=== PATIENT | female | born 2000 | race Caucasian/White ===

== ENCOUNTER 2023-02-08 07:55 | Inpatient (IN) ==
[2023-02-08] MEDS ORDERED: OXYTOCIN 30 UNITS/500 ML BAG IV PRN ×2 (08:21)
[2023-02-08] MEDS ORDERED: LIDOCAINE 1% LOCAL 20 ML VIAL INFIL PRN (08:21)
--- NOTE | 2023-02-08 08:21 | History & Physical Report ---
Date of Service February 08, 2023 Assessment & Plan (1) Hypothyroidism: (2) Encounter for induction of labor: Plan Will admit patient to L&D for induction of labor. Patient comfortable. VSS. Fetus category 1 Cervix favorable, plan for Dickey balloon Pit as needed Epidural prn Patient in agreement. Admission and Anticipated Discharge Date Admission Date: February 08, 2023 History of Present Illness Chief Complaint: INDUCTION Primary Care Provider: Flower Alcala DO Contreras is a 22 y/o female with PMHx of Hypothyroidism who is currently at IUP 40 3/7 WGA with an RONAL 02/05/23 as determined by certain LMP who is here for IOL due to post dates. (+) movement (-) contractions (-) fluid loss (-) bloody show External FHT and external uterine monitors used * Category 1 tracing * Moderate FHT variability. Had regular appointments since 1st trimester. OB Labs: Blood Type A Negative 07/07/22 Antibody Screen NEGATIVE 11/18/22 Hemoglobin 11.8 g/dl (12.0-16.0) L 11/18/22 Hematocrit 35.8 % (37.0-47.0) L 11/18/22 Mean Corpuscular Volume 84.6 fL (80.0-100.0) 09/12/22 Platelet Count 292 K/uL (130-400) 09/12/22 Rubella IgG Antibody Equivocal (Immune) L 07/07/22 Rapid Plasma Reagin Nonreactive (Nonreactive) 07/07/22 Hepatitis B Surface Antigen Neg (Neg) 10/23/20 Hepatitis B Surface Antigen. NON-REACTIVE (NON-REACTIVE) 07/07/22 Hepatitis C Antibody Neg (Neg) 10/23/20 Hepatitis C Antibody (EIA) NON-REACTIVE (NON-REACTIVE) 07/07/22 HIV (1&2) Ab and P24 Ag, 4th Gener Neg (Neg) 10/23/20 HIV (1&2) Ag and Ab Confirmation NON-REACTIVE (NON-REACTIVE) 07/07/22 Glucose 1 Hour 50 gm Load 71 mg/dl (70-130) 11/18/22 OB Optional Labs: Chlamydia trachomatis RNA Not Detected (NotDetected) 07/07/22 Neisseria gonorrhoeae RNA Not Detected (NotDetected) 07/07/22 Thyroid Stimulating Hormone (TSH) 1.07 mIU/L 12/06/22 Labs Reviewed: declines cf/sma/horizon/cfDNA Rhogam given on 11/18/22 Allergies Allergy/AdvReac Type Severity Reaction Status Date / Time paprika Allergy Hives, Verified 02/07/23 14:39 swelling Home Medications Medication Instructions Recorded Confirmed Type prenat.vits,ck,tnu-hryk-queek 1 tab PO DAILY 07/06/22 02/08/23 History levothyroxine 50 mcg tablet 50 mcg PO DAILY #90 tabs 09/12/22 02/08/23 Rx cholecalciferol (vitamin D3) 50 50 mcg PO DAILY 10/11/22 02/08/23 History mcg (2,000 unit) capsule Patient History Medical History (Updated 02/08/23 @ 08:19 by Neha Roach MD) Allergic rhinitis Surgical History No history of previous surgery Family History Grandfather (Maternal) Myocardial infarction Coronary heart disease Father Alcohol abuse Mother Anxiety Fibromyalgia IBS (irritable bowel syndrome) Brother No problems noted. Brother No problems noted. Grandmother (Maternal) Diabetes Denies family history of Ovarian cancer Prostate cancer Breast cancer Colorectal cancer Uterine cancer Social History Smoking Status: Never smoker Tobacco Type: E-cigarettes / Vaping Age Started Using Tobacco: 20; Second Hand Exposure: Yes; Do You Dip or Chew Tobacco: No; Hx Alcohol Use: No Hx Substance Use: No Preferred Language: Maltese Communication Ability: Effective Visual Impairment: Limited Hearing Ability: Normal Library Serials Assistant Required: No Beliefs That Will Affect Care: None marital status: single marital status details: boyfriend-Ignacio Ramirez (24) [phone] Current Living Situation: Significant Other Current Living Situation Comment: livves with partner, 3 rabbits, one cat, Partner litter changing current occupational status: employed 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 How many Children do You have: 0 Other Information That Helps Us Care for You: No Feels Safe at Home: Yes Safety Concerns: Feels Safe At This Time Childhood Exposure to Second-Hand Smoke: Yes (occasional ) Diet: regular caffeine: Yes during the past year weight has: remained stable Dental Care, Regularly: Yes Physical Activity Frequency: Daily Physical Activity Frequency Comment: work- walk Seatbelt Use: always Sunscreen Use: Yes Do you think of yourself as: straight/heterosexual Sexual Activity: has been sexually active within the last 12 months Assistive Devices: Glasses SYSTEMS SOFTWARE MANAGER History Menarche was at 10 y/o LMP: 05/01/22 * Regular: Every 28 days * Flow: normal Contraception use: No History of STDs: N Last Pap Smear: 10/26/20 (negative) Review of Systems no fever, no chills and no sweats Denies changes in vision. Denies shortness of breath or respiratory difficulty. no chest pain and no palpitations no dysuria no headache(s) Physical Exam Physical Exam: General: Alert, oriented x3. Afebrile. No acute distress. Eyes: Pupils equal and reactive to light bilaterally. Extraocular movement intact bilaterally. Cardiac: Regular rate and rhythm, no murmurs/rubs/gallops. Respiratory: Clear to auscultation bilaterally a/p, no wheezes/rales/rhonchi. No increased work of breathing. Symmetrical chest rise. No respiratory distress. Abdomen: Gravid; FHR baseline 130-135 bpm; Position: Cephalic Pelvic: 1.5 / 50 / -[address] Hernandez Lower Extremities: Bilateral swelling. No deep calf pain. Jennifer's negative bilaterally Results & Data Vital Signs (Past 12 Hours) Vital Signs Pulse BP 02/08/23 08:09 96 H 124/79 Supervising Physician Co-Signing Physician Notes Resident Physician Supervision Note: I interviewed and examined the patient. Discussed with Dr. Roach and agree with findings and plan as documented in the note. Any exceptions or clarifications are listed here: 22 yo G1 at 40 3/7 wga presents for post-dates IOL. +FM; denies regular ctx, LOF, VB. PNI: Hypothyroid, Rh neg, rub equiv. VSS, fetus cat 1. SVE 50/-2. 35 cc dickey placed, pt tolerated well. GBS neg. Epidural PRN. Will start pit w/ dickey Documented By: Carline Hernandez MD Resident Activity Tracking Resident Involvement: Resident Care Provided Care Provided: OB Delivery
[2023-02-08 08:50] LABS: Hematocrit (blood only) 37.2 % (37.0-47.0); Hemoglobin 12.9 g/dl (12.0-16.0); Mean Corpuscular Hemoglobin 30.4 pg (25.0-34.0); Mean Corpuscular Hgb Conc 34.7 g/dL (32.0-36.0); Mean Corpuscular Volume 87.7 fL (80.0-100.0); Mean Platelet Volume 11.7 fL (9.4-12.4); Platelet Count 166 K/uL (130-400); RDW Coefficient of Variation 14.8 % (11.5-14.5); RDW Standard Deviation 46.9 fL (36.4-46.3); Red Blood Count 4.24 M/uL (4.20-5.40); White Blood Count 8.32 K/ul (4.8-10.8)
[2023-02-08] MEDS: LACTATED RINGER'S 1,000 ML IV PRN ×4 (10:16→23:58)
[2023-02-08] MEDS ORDERED: fentaNYL citrate PF 100 MCG/2 ML VIAL ONE (11:48)
[2023-02-08] MEDS ORDERED: LIDOCAINE 2%/EPINEPHRINE 1:200,000 20 ML PF ONE (11:49)
[2023-02-08] MEDS ORDERED: fentANYL 2 MCG/ML BUPIVacaine 0.125%-NSS 100ML BAG ONE ×2 (11:49→20:33)
[2023-02-08] MEDS ORDERED: BUPIVACAINE 0.25% PF 30 ML VIAL ONE (11:49)
[2023-02-08] MEDS ORDERED: SODIUM CHLORIDE 0.9% PF INJ 10 ML VIAL ONE (11:49)
[2023-02-08] MEDS ORDERED: ePHEDrine sulfate 50 MG/ML AMP ONE (11:49)
--- NOTE | 2023-02-08 12:28 | Anesthesiology Consultation ---
Date of Service February 08, 2023 Assessment & Plan Chart Review Chart Review: Acceptable Risk for Labor Epidural Consults Requested none ASA ASA2 Proposed Anesthesia Anesthesia Type: Labor Epidural Risk / Benefits Reviewed With: PT / POA / Parent / Guardian, Accepts Plan and Informed Consent Obtained History Height/Weight Height: 5 ft 1 in Weight: 78.471 kg Allergies Allergy/AdvReac Type Severity Reaction Status Date / Time paprika Allergy Hives, Verified 02/07/23 14:39 swelling Medications Home Medications Medication Instructions Recorded Confirmed Last Taken prenat.vits,ck,mqm-moya-qbjhz 1 tab PO DAILY 07/06/22 02/08/23 02/07/23 levothyroxine 50 mcg tablet 50 mcg PO DAILY #90 tabs 09/12/22 02/08/23 02/07/23 cholecalciferol (vitamin D3) 50 50 mcg PO DAILY 10/11/22 02/08/23 02/07/23 mcg (2,000 unit) capsule Active Medications Generic Name Dose Route Start Last Admin Trade Name Freq PRN Reason Stop Dose Admin Oxytocin 30 units in 500 mls @ 6 mls/hr 02/08/23 08:21 02/08/23 11:20 Pitocin IV 02/10/23 08:20 0.36 units/hr .Q24H PRN 6 mls/hr Labor Induction/Augmentation Titration Protocol 0.36 UNITS/HR Lactated Ringer's 1,000 mls @ 125 mls/hr 02/08/23 08:21 02/08/23 11:21 Lr IV 02/10/23 08:20 999 mls/hr .Q8H PRN Infusion L&D Protocol Protocol Past Medical History Medical History Allergic rhinitis Exercise / Class Metabolic Activity II 4-5 Yardwork/Stairs/Walk up hill Past Family History Family History Grandfather (Maternal) Myocardial infarction Coronary heart disease Father Alcohol abuse Mother Anxiety Fibromyalgia IBS (irritable bowel syndrome) Brother No problems noted. Brother No problems noted. Grandmother (Maternal) Diabetes Denies family history of Ovarian cancer Prostate cancer Breast cancer Colorectal cancer Uterine cancer Past Surgical History Surgical History No history of previous surgery Past Anesthesia History No Hx of Anesthesia Complications and No Family Hx of Anesthesia Complications History of PONV No Hx of PONV and No Hx of Motion Sickness Social History Smoking Status: Former smoker Do You Dip or Chew Tobacco: No Hx Alcohol Use: No Hx Substance Use: No Physical Exam Vital Signs Last Vital Signs Temp 98.2 F 02/08/23 08:08 Pulse 81 02/08/23 12:24 Resp 18 02/08/23 08:08 BP 111/61 02/08/23 11:42 Pulse Ox 99 02/08/23 12:24 ENMT Mouth: no dentition abnormality Thyromental Distance: > or= 3.5 Finger Breadths Mallampati Class: II Neck normal visual inspection Respiratory normal respiratory effort Auscultation: lungs clear to auscultation bilaterally Cardiovascular Rate/Rhythm: regular rate and regular rhythm Testing Laboratory Results 02/08/23 08:34
[2023-02-08] MEDS ORDERED: diphenhydrAMINE 50 MG/ML VIAL IV PRN (12:52)
[2023-02-08] MEDS ORDERED: BUPIVACAINE 0.25% PF 30 ML VIAL EPI PRN (12:52)
[2023-02-08] MEDS ORDERED: LIDOCAINE 2%/EPINEPHRINE 1:200,000 20 ML PF EPI STA (12:52)
[2023-02-08] MEDS ORDERED: fentaNYL citrate PF 100 MCG/2 ML VIAL EPI STA (12:52)
[2023-02-08] MEDS ORDERED: fentaNYL citrate PF 100 MCG/2 ML VIAL EPI PRN (12:52)
[2023-02-08] MEDS ORDERED: SODIUM CHLORIDE 0.9% PF INJ 10 ML VIAL EPI PRN (12:52)
[2023-02-08] MEDS ORDERED: NALOXONE HCL 0.4 MG/1 ML VIAL/CARP IV PRN (12:52)
[2023-02-08] MEDS ORDERED: BUPIVACAINE 0.25% PF 30 ML VIAL EPI STA (12:52)
[2023-02-08] MEDS ORDERED: NALOXONE HCL 1 MG in SODIUM CHLORIDE 0.9% 1,000 ML IV PRN (12:52)
[2023-02-08] MEDS ORDERED: ROPIVACAINE 0.5% PF 5 MG/ML 20 ML VIAL EPI PRN (12:52)
[2023-02-08] MEDS ORDERED: SODIUM CHLORIDE 0.9% PF INJ 10 ML VIAL EPI STA (12:52)
[2023-02-08] MEDS ORDERED: ONDANSETRON INJ 2 MG/ML 2 ML VIAL IV PRN (12:52)
[2023-02-08] MEDS ORDERED: LIDOCAINE 2% MPF LOCAL 5 ML VIAL EPI PRN (12:52)
[2023-02-08] MEDS ORDERED: fentANYL 2 MCG/ML BUPIVacaine 0.125%-NSS 100ML BAG EPI PRN (12:52)
[2023-02-08] MEDS ORDERED: ePHEDrine sulfate 50 MG/ML AMP IV PRN (12:52)
[2023-02-08] MEDS ORDERED: NALBUPHINE HCL 5 MG in SYRINGE 0 ML IV PRN (12:52)
[2023-02-08] MEDS ORDERED: NURSING L&D Epidural Breakthrough Pain Update ONE (15:07)
--- NOTE | 2023-02-08 18:11 | Anesthesia Procedure Note ---
Date of Service February 08, 2023 Anesthesia Epidural Re-Dose Vital Signs Temp Pulse Resp BP Pulse Ox 98.1 F 76 18 132/71 99 02/08/23 17:00 02/08/23 18:04 02/08/23 17:30 02/08/23 18:04 02/08/23 18:04 Notes Pain Intensity: 7 Dilatation (cm): 5.0 Effacement (%): 80 Called by nursing to evaluate epidural as the patient is having increased pain. The epidural was re-dosed with the following medications after negative aspiration of the epidural catheter for CSF/HEME. 4mL of 0.25% Bupivacaine and 50 mcg of fentanyl After Epidural Re-Dose Mental Status: alert / awake / arousable Pain: improving with treatment Airway Patency, RR, SpO2: stable & adequate BP & HR: stable & adequate
--- NOTE | 2023-02-08 19:17 | Labor Progress Brief Note ---
Date of Service February 08, 2023 Subjective Called due to decel, resolved by my arrival Assessment & Plan (1) Encounter for induction of labor: Plan 22 yo G1 at 40 3/7 wga admitted for postdates IOL VSS Fetus cat 2 but reassuring now Labor - pit was turned off during decel, had one prior episode that was a large decel after srom and repositioning. Fetus has recovered well both times. Will let fetus recover for an hour and restart. Discussed if this continues to recur, will need to rediscuss method of delivery GBS neg epidural in place Admission and Anticipated Discharge Date Admission Date: February 08, 2023 Physical Exam Genitourinary: Manual OB Exam: + cervical dilation 5 cm, + cervical effacement 80% and + station -2 OB Exam Monitor Tracing: + scalp electrode used, + intra-uterine pressure catheter used and + category II (125/mod/+accel/+4min decel to 80s, recovered cat 1 w/ repositioning, pit dc) Results & Data Vital Signs (Past 12 Hours) Vital Signs Temp Pulse Resp BP Pulse Ox 02/08/23 19:09 78 99 02/08/23 19:04 98 02/08/23 19:04 71 02/08/23 19:04 71 112/63 02/08/23 19:00 18 02/08/23 19:00 18 02/08/23 18:59 73 98 02/08/23 18:54 72 98 02/08/23 18:49 98 02/08/23 18:49 75 02/08/23 18:49 75 113/64 02/08/23 18:44 74 98 02/08/23 18:39 79 100 02/08/23 18:36 70 115/66 02/08/23 18:34 71 100 02/08/23 18:31 71 95/63 L 02/08/23 18:30 18 02/08/23 18:30 18 02/08/23 18:29 94 H 97 02/08/23 18:24 72 97 02/08/23 18:20 71 114/64 02/08/23 18:19 72 96 02/08/23 18:14 79 98 02/08/23 18:09 78 99 02/08/23 18:04 76 132/71 99 02/08/23 17:59 74 100 02/08/23 17:54 76 99 02/08/23 17:50 74 128/73 02/08/23 17:49 74 99 02/08/23 17:44 72 99 02/08/23 17:39 77 97 02/08/23 17:35 72 130/72 02/08/23 17:34 77 100 02/08/23 17:30 18 02/08/23 17:30 18 02/08/23 17:29 72 99 02/08/23 17:24 77 99 02/08/23 17:20 76 113/57 L 02/08/23 17:19 73 99 02/08/23 17:14 72 98 02/08/23 17:09 72 98 02/08/23 17:05 71 114/58 L 02/08/23 17:04 73 99 02/08/23 17:00 18 02/08/23 17:00 98.1 F 18 02/08/23 16:59 74 99 02/08/23 16:54 72 100 02/08/23 16:49 98 02/08/23 16:49 73 02/08/23 16:49 72 133/71 02/08/23 16:44 72 98 02/08/23 16:39 73 98 02/08/23 16:34 86 130/67 100 02/08/23 16:30 18 02/08/23 16:30 18 02/08/23 16:29 72 100 02/08/23 16:24 91 H 99 02/08/23 16:19 70 99 02/08/23 16:14 71 96 02/08/23 16:09 72 98 02/08/23 16:05 85 134/60 02/08/23 16:04 80 98 02/08/23 16:00 18 02/08/23 16:00 98.1 F 18 02/08/23 15:59 76 97 02/08/23 15:54 74 97 02/08/23 15:49 97 02/08/23 15:49 71 02/08/23 15:49 73 108/53 L 02/08/23 15:44 71 98 02/08/23 15:39 69 97 02/08/23 15:35 71 105/53 L 02/08/23 15:34 71 98 02/08/23 15:29 69 97 02/08/23 15:24 69 97 02/08/23 15:20 68 108/50 L 02/08/23 15:19 68 97 02/08/23 15:14 70 97 02/08/23 15:09 70 96 02/08/23 15:04 71 107/50 L 98 02/08/23 15:00 18 02/08/23 15:00 18 02/08/23 14:59 71 97 02/08/23 14:54 74 97 02/08/23 14:49 72 111/57 L 98 02/08/23 14:44 84 97 02/08/23 14:39 74 97 02/08/23 14:34 71 99 02/08/23 14:30 18 02/08/23 14:30 18 02/08/23 14:29 74 98 02/08/23 14:24 75 97 02/08/23 14:20 76 117/55 L 02/08/23 14:19 77 98 02/08/23 14:14 74 97 02/08/23 14:09 75 97 02/08/23 14:05 72 113/56 L 02/08/23 14:04 73 97 02/08/23 14:00 18 02/08/23 14:00 98.2 F 18 02/08/23 13:59 73 97 02/08/23 13:54 73 98 02/08/23 13:49 75 121/61 98 02/08/23 13:44 74 98 02/08/23 13:39 71 98 02/08/23 13:34 74 116/56 L 98 02/08/23 13:29 74 98 02/08/23 13:24 73 97 02/08/23 13:19 71 98 02/08/23 13:18 72 118/57 L 02/08/23 13:14 73 113/59 L 97 02/08/23 13:09 74 98 02/08/23 13:08 73 114/58 L 02/08/23 13:04 73 18 97 02/08/23 13:03 72 115/59 L 02/08/23 13:02 18 02/08/23 13:02 18 02/08/23 13:00 18 02/08/23 13:00 18 02/08/23 12:59 74 98 02/08/23 12:58 18 02/08/23 12:58 18 02/08/23 12:56 18 120/57 L 02/08/23 12:54 18 02/08/23 12:54 18 02/08/23 12:54 97 02/08/23 12:54 77 02/08/23 12:54 78 114/55 L 02/08/23 12:52 73 18 116/59 L 02/08/23 12:49 77 103/57 L 98 02/08/23 12:44 86 98 02/08/23 12:39 87 98 02/08/23 12:34 99 H 99 02/08/23 12:29 85 99 02/08/23 12:27 18 02/08/23 12:27 18 02/08/23 12:24 81 99 02/08/23 12:19 73 98 02/08/23 12:14 77 99 02/08/23 12:09 71 99 02/08/23 12:04 73 100 02/08/23 11:42 69 111/61 02/08/23 10:20 80 118/71 02/08/23 08:09 96 H 124/79 02/08/23 08:08 98.2 F 18 Coding Level of Care Code None Diagnoses Encounter for induction of labor Z34.90
--- NOTE | 2023-02-08 22:33 | Labor Progress Brief Note ---
Date of Service February 08, 2023 Subjective comfortable w/ epidural Assessment & Plan (1) Encounter for induction of labor: Plan 22 yo G1 at 40 3/7 wga admitted for postdates IOL VSS Fetus cat 1 Labor - good progress noted, continue induction GBS neg epidural in place Admission and Anticipated Discharge Date Admission Date: February 08, 2023 Physical Exam Genitourinary: Manual OB Exam: + cervical dilation 9 cm, + cervical effacement 90% and + station + 1 OB Exam Monitor Tracing: + scalp electrode used, + intra-uterine pressure catheter used and + category I Results & Data Vital Signs (Past 12 Hours) Vital Signs Temp Pulse Resp BP Pulse Ox 02/08/23 22:29 76 98 02/08/23 22:24 83 98 02/08/23 22:19 80 115/64 96 02/08/23 22:14 80 97 02/08/23 22:09 83 98 02/08/23 22:04 77 97 02/08/23 22:03 84 117/68 02/08/23 21:59 96 H 98 02/08/23 21:54 86 98 02/08/23 21:49 99 02/08/23 21:49 82 02/08/23 21:49 92 H 118/71 02/08/23 21:44 83 97 02/08/23 21:39 86 97 02/08/23 21:34 95 H 119/66 97 02/08/23 21:30 18 02/08/23 21:30 98.4 F 18 02/08/23 21:29 76 97 02/08/23 21:24 92 H 97 02/08/23 21:19 97 02/08/23 21:19 81 02/08/23 21:19 88 118/70 02/08/23 21:14 80 97 02/08/23 21:09 78 97 02/08/23 21:04 82 126/59 L 97 02/08/23 20:59 81 97 02/08/23 20:54 76 98 02/08/23 20:49 77 98 02/08/23 20:48 75 120/61 02/08/23 20:44 76 97 02/08/23 20:39 78 98 02/08/23 20:34 98 02/08/23 20:34 77 02/08/23 20:34 75 129/70 02/08/23 20:30 18 02/08/23 20:30 18 02/08/23 20:29 76 98 02/08/23 20:24 78 99 02/08/23 20:19 78 98 02/08/23 20:14 81 99 02/08/23 20:09 76 98 02/08/23 20:04 99 02/08/23 20:04 76 02/08/23 20:04 75 125/61 02/08/23 20:00 18 02/08/23 20:00 18 02/08/23 19:59 77 99 02/08/23 19:54 76 98 02/08/23 19:49 77 147/57 H 99 02/08/23 19:44 79 98 02/08/23 19:39 77 98 02/08/23 19:34 78 98 02/08/23 19:30 18 02/08/23 19:30 98.1 F 18 02/08/23 19:29 76 99 02/08/23 19:24 78 99 02/08/23 19:19 98 02/08/23 19:19 76 02/08/23 19:19 77 98/56 L 02/08/23 19:14 79 99 02/08/23 19:09 78 99 02/08/23 19:04 98 02/08/23 19:04 71 02/08/23 19:04 71 112/63 02/08/23 19:00 18 02/08/23 19:00 18 02/08/23 18:59 73 98 02/08/23 18:54 72 98 02/08/23 18:49 98 02/08/23 18:49 75 02/08/23 18:49 75 113/64 02/08/23 18:44 74 98 02/08/23 18:39 79 100 02/08/23 18:36 70 115/66 02/08/23 18:34 71 100 02/08/23 18:31 71 95/63 L 02/08/23 18:30 18 02/08/23 18:30 18 02/08/23 18:29 94 H 97 02/08/23 18:24 72 97 02/08/23 18:20 71 114/64 02/08/23 18:19 72 96 02/08/23 18:14 79 98 02/08/23 18:09 78 99 02/08/23 18:04 76 132/71 99 02/08/23 17:59 74 100 02/08/23 17:54 76 99 02/08/23 17:50 74 128/73 02/08/23 17:49 74 99 02/08/23 17:44 72 99 02/08/23 17:39 77 97 02/08/23 17:35 72 130/72 02/08/23 17:34 77 100 02/08/23 17:30 18 02/08/23 17:30 18 02/08/23 17:29 72 99 02/08/23 17:24 77 99 02/08/23 17:20 76 113/57 L 02/08/23 17:19 73 99 02/08/23 17:14 72 98 02/08/23 17:09 72 98 02/08/23 17:05 71 114/58 L 02/08/23 17:04 73 99 02/08/23 17:00 18 02/08/23 17:00 98.1 F 18 02/08/23 16:59 74 99 02/08/23 16:54 72 100 02/08/23 16:49 98 02/08/23 16:49 73 02/08/23 16:49 72 133/71 02/08/23 16:44 72 98 02/08/23 16:39 73 98 02/08/23 16:34 86 130/67 100 02/08/23 16:30 18 02/08/23 16:30 18 02/08/23 16:29 72 100 02/08/23 16:24 91 H 99 02/08/23 16:19 70 99 02/08/23 16:14 71 96 02/08/23 16:09 72 98 02/08/23 16:05 85 134/60 02/08/23 16:04 80 98 02/08/23 16:00 18 02/08/23 16:00 98.1 F 18 02/08/23 15:59 76 97 02/08/23 15:54 74 97 02/08/23 15:49 97 02/08/23 15:49 71 02/08/23 15:49 73 108/53 L 02/08/23 15:44 71 98 02/08/23 15:39 69 97 02/08/23 15:35 71 105/53 L 02/08/23 15:34 71 98 02/08/23 15:29 69 97 02/08/23 15:24 69 97 02/08/23 15:20 68 108/50 L 02/08/23 15:19 68 97 02/08/23 15:14 70 97 02/08/23 15:09 70 96 02/08/23 15:04 71 107/50 L 98 02/08/23 15:00 18 02/08/23 15:00 18 02/08/23 14:59 71 97 02/08/23 14:54 74 97 02/08/23 14:49 72 111/57 L 98 02/08/23 14:44 84 97 02/08/23 14:39 74 97 02/08/23 14:34 71 99 02/08/23 14:30 18 02/08/23 14:30 18 02/08/23 14:29 74 98 02/08/23 14:24 75 97 02/08/23 14:20 76 117/55 L 02/08/23 14:19 77 98 02/08/23 14:14 74 97 02/08/23 14:09 75 97 02/08/23 14:05 72 113/56 L 02/08/23 14:04 73 97 02/08/23 14:00 18 02/08/23 14:00 98.2 F 18 02/08/23 13:59 73 97 02/08/23 13:54 73 98 02/08/23 13:49 75 121/61 98 02/08/23 13:44 74 98 02/08/23 13:39 71 98 02/08/23 13:34 74 116/56 L 98 02/08/23 13:29 74 98 02/08/23 13:24 73 97 02/08/23 13:19 71 98 02/08/23 13:18 72 118/57 L 02/08/23 13:14 73 113/59 L 97 02/08/23 13:09 74 98 02/08/23 13:08 73 114/58 L 02/08/23 13:04 73 18 97 02/08/23 13:03 72 115/59 L 02/08/23 13:02 18 02/08/23 13:02 18 02/08/23 13:00 18 02/08/23 13:00 18 02/08/23 12:59 74 98 02/08/23 12:58 18 02/08/23 12:58 18 02/08/23 12:56 18 120/57 L 02/08/23 12:54 18 02/08/23 12:54 18 02/08/23 12:54 97 02/08/23 12:54 77 02/08/23 12:54 78 114/55 L 02/08/23 12:52 73 18 116/59 L 02/08/23 12:49 77 103/57 L 98 02/08/23 12:44 86 98 02/08/23 12:39 87 98 02/08/23 12:34 99 H 99 02/08/23 12:29 85 99 02/08/23 12:27 18 02/08/23 12:27 18 02/08/23 12:24 81 99 02/08/23 12:19 73 98 02/08/23 12:14 77 99 02/08/23 12:09 71 99 02/08/23 12:04 73 100 02/08/23 11:42 69 111/61 Coding Level of Care Code None Diagnoses Encounter for induction of labor Z34.90
--- NOTE | 2023-02-09 01:42 | Delivery Summary ---
Vaginal Delivery Summary Date of Service February 09, 2023 Vaginal Delivery Summary [facility] PREOPERATIVE DIAGNOSIS: 1. Single intrauterine at 40 4/7 wga 2. Hypothyroid POSTOPERATIVE DIAGNOSIS: 1. Single intrauterine at 40 4/7 wga 2. Hypothyroid 3. Delivered PROCEDURE: 1. Normal spontaneous vaginal delivery. SURGEON: Carline Hernandez MD ANESTHESIA: Epidural. ESTIMATED BLOOD LOSS: 300 mL FLUIDS: Continuous LR. URINE OUTPUT: None. COMPLICATIONS: None. CONDITION: Stable. INDICATIONS: 22 yo G1 at 40 4/7 wga presented 1d ago for post-dates IOL. Induction was begun with dickey and pit. She received an epidural for pain control and dickey bulb expulsed. She underwent SROM and did experience a large decel at which point pit was stopped and FSE/IUPC were placed. Pit was restarted and a while later a moderate decel was again noted and 1hour break was given. Pitocin was restarted and she then continued to progress to complete and desired to push. FINDINGS: A viable female , weight pending with Apgars of 7 and 9 at 1 and 5 minutes respectively. SPECIMEN: Cord blood OPERATIVE REPORT: The patient progressed to 10 cm, 100% effaced and +2 station, pushed over intact perineum with anesthesia to deliver a viable female infant, weight and Apgars as above. Head of delivered in MARK ANTHONY position. No nuchal cord was present. Body and shoulders were delivered without difficulty. was delivered to maternal abdomen and nursing staff. Delayed cord clamping was performed for 60 seconds. Cord was clamped and cut. Cord blood was obtained. Placenta delivered spontaneously intact with 3-vessel cord. IV oxytocin and fundal massage were given for excellent hemostasis. Vagina, cervix, perineum, and placenta were inspected. A small hemostatic abrasion was noted at the introitus and periclitoral but did not need repaired. Sponge and needle counts correct x2. No sponges were left behind. Mother and stable in immediate period. [facility] [place] Vaginal Delivery Charge Vaginal Delivery Codes: 91031 global code for the antepartum, delivery, and post- Delivery Type Details: [facility]
[2023-02-09] MEDS ORDERED: OXYTOCIN 30 UNITS/500 ML BAG IV PRN (01:45)
[2023-02-09] MEDS ORDERED: HYDROCORTISONE ACETATE 25 MG SUPP PR PRN (01:45)
[2023-02-09] MEDS ORDERED: MEASLES, MUMPS & RUBELLA VIRUS VACCINE (MMR) VIAL SQ ONE (01:45)
[2023-02-09] MEDS ORDERED: BENZOCAINE 20% SPRY 85 APPLN/85 GM CAN EXT PRN (01:45)
[2023-02-09] MEDS ORDERED: DIPHTHERIA/TETANUS/PERTUSSIS Vaccine (Tdap, Age 7+yrs) 0.5mL SYR/VL IM ONE (01:45)
[2023-02-09] MEDS ORDERED: ACETAMINOPHEN 325 MG TAB PO PRN (01:45)
--- NOTE | 2023-02-09 02:22 | Anesthesia Procedure Note ---
Date of Service February 09, 2023 Anesthesia Post Epidural Note Vital Signs Vital Signs: Temp Pulse Resp BP Pulse Ox 98.6 F 99 H 18 131/62 97 02/09/23 01:38 02/09/23 02:07 02/09/23 01:38 02/09/23 02:07 02/09/23 00:39 Pain Intensity Lower Abdomen: Pain Intensity: 5 Bilateral Episiotomy/Laceration: Pain Intensity: 2 Notes Mental Status: alert / awake / arousable and participated in evaluation Nausea / Vomiting: adequately controlled Pain: adequately controlled Airway Patency, RR, SpO2: stable & adequate BP & HR: stable & adequate Hydration State: stable & adequate Neuraxial Anesthesia: was administered and sensory block is resolving Anesthetic Complications: no major complications apparent and Pt Satisfied with anesthetic care Epidural: Removed without complications and With tip intact
[2023-02-09] MEDS: IBUPROFEN 600 MG TAB PO PRN ×2 (03:44→09:02)
[2023-02-09] MEDS: LEVOTHYROXINE SODIUM 50 MCG TABLET PO SCH (05:55)
[2023-02-09] MEDS: FERROUS SULFATE 325 MG TAB PO SCH (09:01)
[2023-02-09] MEDS: DOCUSATE SODIUM 100 MG CAP PO SCH ×2 (09:02→21:17)
[2023-02-09] MEDS: PRENATAL VITAMIN 1 TAB PO SCH (09:02)
--- NOTE | 2023-02-10 07:04 | Obstetrical Progress Note ---
Date of Service <Neha Roach MD - Last Filed: 02/10/23 08:29> February 10, 2023 Assessment & Plan <Neha Roach MD - Last Filed: 02/10/23 08:29> (1) Encounter for assessment: Plan Patient with the above mentioned history and findings was evaluated at bedside and found awake, alert, oriented in all spheres, afebrile, and in no acute distress. Vital signs showed no fever and blood pressures remained stable. Her blood type is A negative (s/p pp Rhogam on 02/09/23) and most recent hemoglobin is adequate at 12.9 g/dL. She is GBS negative and rubella equivocal. Overall, patient is doing well clinically and meeting the desired milestones. Will continue routine pp care. All questions answered. <Gilma Cee DO - Last Filed: 02/10/23 08:48> (1) Encounter for assessment: Subjective <Neha Roach MD - Last Filed: 02/10/23 08:29> Diane is a 22 y/o female who is now PPD # 1 following at 40 3/7 weeks. Reports feeling well overall this morning. Refers mild abdominal cramping & 1/10 pain well managed on analgesics. Voiding spontaneously. Has passed flatus but no bowel movements yet. Tolerating meals overnight and able to ambulate some. Some persistent lochia with some improvement this morning. . Constitutional: no fever, no chills or no sweats Denies shortness of breath or difficulty breathing Cardiovascular: no chest pain or no palpitations Breast: no breast pain Genitourinary (female): no dysuria Neurologic: no headache(s) Denies changes in vision Physical Exam <Neha Roach MD - Last Filed: 02/10/23 08:29> General: Alert. Oriented to person, time, and place. Afebrile. No acute distress. Eyes: pupils equal and reactive to light bilaterally, extraocular movements intact. Cardiac: Regular rate and rhythm, no murmurs/rubs/gallops. Respiratory: No increased work of breathing. Symmetrical chest rise. No respiratory distress. Abdomen: Soft, nontender, nondistended. Bowel sounds present. Uterus: Uterine fundus firm, non-tender, and palpable at umbilicus. Lower Extremities: Bilateral +1 edema. No deep calf pain. Jennifer's negative bilaterally. Psych: Euthymic affect. Mood and affect congruence. Regular speech rate and content. Results & Data <Neha Roach MD - Last Filed: 02/10/23 08:29> Vital Signs (Past 12 Hours) Vital Signs Temp Pulse Resp BP Pulse Ox O2 Del Method 02/09/23 23:11 36.8 C 86 16 108/68 97 Room Air 02/09/23 19:24 37 C 90 18 134/83 97 Room Air Supervising Physician <Gilma Cee DO - Last Filed: 02/10/23 08:48> Co-Signing Physician Notes Resident Physician Supervision Note: I was present with Dr. Roach during the history and exam. I discussed the case with the resident and agree with the findings and plan as documented in the note. Any exceptions or clarifications are listed here: PPD#1 doing well. maybe wants to go home today - reviewed DC instructions. Documented By: Gilma Cee DO Resident Activity Tracking <Neha Roach MD - Last Filed: 02/10/23 08:29> Resident Involvement: Resident Care Provided Care Provided: OB Delivery
[2023-02-10] MEDS: LEVOTHYROXINE SODIUM 50 MCG TABLET PO SCH (07:24)
[2023-02-10] MEDS: FERROUS SULFATE 325 MG TAB PO SCH (08:42)
[2023-02-10] MEDS: DOCUSATE SODIUM 100 MG CAP PO SCH ×2 (08:42→21:04)
[2023-02-10] MEDS: PRENATAL VITAMIN 1 TAB PO SCH (08:42)
[2023-02-10] MEDS: IBUPROFEN 600 MG TAB PO PRN ×2 (08:42→21:04)
--- NOTE | 2023-02-10 10:04 | Ultrasound Report ---
LEFT LOWER EXTREMITY VENOUS DOPPLER HISTORY: Acute pain and swelling of the left lower extremity ; sudden LE swelling LT>RT COMPARISON STUDY: None. FINDINGS: There is normal compressibility, flow, and augmentation within the left lower extremity raúl p venous system. IMPRESSION: No DVT within the left lower extremity. ACT 112: Negative or not required by law. Electronically signed by: Iban Terry M.D. 02/10/2023 10:02 AM
[2023-02-10] MEDS ORDERED: bisacodyL 5 MG TABEC PO SCH (20:00)
[2023-02-11] MEDS ORDERED: bisacodyL 10 MG SUPP PR PRN (01:45)
[2023-02-11] MEDS: LEVOTHYROXINE SODIUM 50 MCG TABLET PO SCH (06:36)
[2023-02-11] MEDS: IBUPROFEN 600 MG TAB PO PRN (06:37)
--- NOTE | 2023-02-11 07:23 | Obstetrical Progress Note ---
Date of Service February 11, 2023 Assessment & Plan (1) care and examination: Plan stable and ready for dc. instructions reviewed, f/u 6wks. breast, rh neg, had rhogam, mmr ordered. Day #:: 2 Subjective Ambulation: ambulating normally Voiding: no voiding problems Diet Tolerance:: regular diet Lochia:: Small Feeding Type:: breast feeding doing well. ready to go home. . Physical Exam Constitutional WD/WN, vitals as above Respiratory normal respiratory effort, lungs clear to auscultation Cardiovascular Rate/Rhythm: regular rate and regular rhythm Gastrointestinal (Abdomen) Inspection/Auscultation: abdomen normal to inspection Percussion/Palpation: abdomen soft Fundus firm 2cm down Musculoskeletal nt calves no edema Neurologic grossly normal Psychiatric A+Ox3, euthymic affect Results & Data Vital Signs (Past 12 Hours) Vital Signs Temp Pulse Resp BP Pulse Ox O2 Del Method 02/10/23 23:00 98.1 F 71 16 125/82 96 Room Air 02/10/23 21:00 98.1 F 77 18 119/76 97 Room Air
[2023-02-11] MEDS ORDERED: MEASLES, MUMPS & RUBELLA VIRUS VACCINE (MMR) VIAL SQ ONE (07:24)
[2023-02-11] MEDS: DOCUSATE SODIUM 100 MG CAP PO SCH (08:45)
[2023-02-11] MEDS: FERROUS SULFATE 325 MG TAB PO SCH (08:45)
[2023-02-11] MEDS: PRENATAL VITAMIN 1 TAB PO SCH (08:45)
== END 2023-02-11 19:33 | disposition home or self-care (01) | DRG 807 ==
LOC: 4S1 07:55 → 4E2 02-09 04:30

== ENCOUNTER 2024-06-08 08:03 | Inpatient (IN) ==
[2024-06-08] MEDS ORDERED: OXYTOCIN 30 UNITS/NSS 30 UNITS/500 ML BAG IV PRN (08:10)
[2024-06-08] MEDS ORDERED: LIDOCAINE 1% LOCAL 20 ML VIAL INFIL PRN (08:10)
[2024-06-08] MEDS: LACTATED RINGER'S 1,000 ML IV PRN (08:30)
[2024-06-08 08:52] LABS: Hematocrit (blood only) 34.7 % (37.0-47.0); Hemoglobin 10.7 g/dl (12.0-16.0); Mean Corpuscular Hemoglobin 22.8 pg (25.0-34.0); Mean Corpuscular Hgb Conc 30.8 g/dL (32.0-36.0); Mean Platelet Volume 12.1 fL (9.4-12.4); Platelet Count 230 K/uL (130-400); RDW Standard Deviation 42.5 fL (36.4-46.3); Red Blood Count 4.69 M/uL (4.20-5.40); White Blood Count 12.94 K/ul (4.8-10.8)
[2024-06-08] MEDS ORDERED: SODIUM CHLORIDE 0.9% PF INJ 10 ML VIAL EPI STA (08:56)
[2024-06-08] MEDS ORDERED: LIDOCAINE 2% MPF LOCAL 5 ML VIAL EPI PRN (08:56)
[2024-06-08] MEDS ORDERED: LIDOCAINE 2%/EPINEPHRINE 1:200,000 20 ML PF EPI STA (08:56)
[2024-06-08] MEDS ORDERED: fentaNYL citrate PF 100 MCG/2 ML VIAL EPI PRN (08:56)
[2024-06-08] MEDS ORDERED: fentaNYL citrate PF 100 MCG/2 ML VIAL EPI STA (08:56)
[2024-06-08] MEDS ORDERED: ROPIVACAINE 0.5% PF 5 MG/ML 20 ML VIAL EPI PRN (08:56)
[2024-06-08] MEDS ORDERED: fentANYL 2 MCG/ML BUPIVacaine 0.125%-NSS 100ML BAG EPI PRN (08:56)
[2024-06-08] MEDS ORDERED: NALOXONE HCL 0.4 MG/1 ML VIAL/CARP IV PRN ×2 (08:56→12:40)
[2024-06-08] MEDS ORDERED: diphenhydrAMINE 50 MG/ML VIAL IV PRN ×2 (08:56→13:42)
[2024-06-08] MEDS ORDERED: BUPIVACAINE 0.25% PF 30 ML VIAL EPI PRN (08:56)
[2024-06-08] MEDS ORDERED: NALOXONE HCL 1 MG in SODIUM CHLORIDE 0.9% 1,000 ML IV PRN ×2 (08:56→12:40)
[2024-06-08] MEDS ORDERED: ePHEDrine sulfate 50 MG/ML AMP IV PRN ×2 (08:56→12:40)
[2024-06-08] MEDS ORDERED: SODIUM CHLORIDE 0.9% PF INJ 10 ML VIAL EPI PRN (08:56)
[2024-06-08] MEDS ORDERED: NALBUPHINE HCL INJ 10 MG/ML AMP IV PRN ×2 (08:56→12:40)
[2024-06-08] MEDS ORDERED: BUPIVACAINE 0.25% PF 30 ML VIAL EPI STA (08:56)
--- NOTE | 2024-06-08 09:00 | Anesthesiology Consultation ---
Date of Service June 08, 2024 Assessment & Plan Chart Review Chart Review: Patient NOT seen in Pre Admission Testing and Acceptable Risk for Labor Epidural Consults Requested none ASA ASA2 Proposed Anesthesia Anesthesia Type: Labor Epidural Risk / Benefits Reviewed With: PT / POA / Parent / Guardian, Accepts Plan and Informed Consent Obtained History Height/Weight Height: 5 ft Weight: 87.543 kg Allergies Allergy/AdvReac Type Severity Reaction Status Date / Time paprika Allergy Hives, Verified 06/07/24 09:53 swelling Medications Home Medications Medication Instructions Recorded Confirmed Last Taken prenat.vits,ck,agq-wpws-rpnag 1 tab PO DAILY 07/06/22 06/07/24 02/07/23 loratadine 10 mg tablet 10 mg PO DAILY 11/06/23 06/07/24 Unknown Active Medications Generic Name Dose Route Start Last Admin Trade Name Freq PRN Reason Stop Dose Admin Lactated Ringer's 1,000 mls @ 125 mls/hr 06/08/24 08:10 06/08/24 08:30 Lr IV 06/09/24 08:09 999 mls/hr .Q8H PRN Administration L&D Protocol Protocol NPO Date Last Intake of Fluids: 06/08/24 Time Last Intake of Fluids: 09:00 Date Last Intake of Solids: 06/07/24 Time Last Intake of Solids: 20:00 Past Medical History Medical History Varicella vaccination GERD (gastroesophageal reflux disease) Depression with anxiety Anemia Iron deficiency Vitamin D deficiency Allergic rhinitis Exercise / Class Metabolic Activity 1 > 8 Run/Swim/Ski/Tennis Past Family History Family History Grandfather (Maternal) Myocardial infarction Coronary heart disease Hodgkin lymphoma Father Alcohol abuse Mother Anxiety Fibromyalgia IBS (irritable bowel syndrome) Brother No problems noted. Brother No problems noted. Grandmother (Maternal) Diabetes Denies family history of Ovarian cancer Prostate cancer Breast cancer Colorectal cancer Uterine cancer Past Surgical History Surgical History No history of previous surgery Past Anesthesia History No Hx of Anesthesia Complications and No Family Hx of Anesthesia Complications History of PONV No Hx of PONV and No Hx of Motion Sickness Social History Smoking Status: Never smoker Do You Dip or Chew Tobacco: No Hx Alcohol Use: No Hx Substance Use: No Review of Systems ROS Unobtainable: All systems reviewed & are unremarkable except as noted in HPI & below Physical Exam Vital Signs Last Vital Signs Temp 36.7 C 06/08/24 08:18 Pulse 120 H 06/08/24 08:54 Resp 16 06/08/24 08:18 BP 141/89 H 06/08/24 08:18 Pulse Ox 100 06/08/24 08:54 ENMT Mouth: no TMJ abnormality Thyromental Distance: > or= 3.5 Finger Breadths Mallampati Class: II Neck normal visual inspection and trachea midline; neck extension not limited Respiratory normal respiratory effort Auscultation: lungs clear to auscultation bilaterally Cardiovascular Rate/Rhythm: regular rate and regular rhythm Heart Sounds: no murmur Musculoskeletal Spine: normal cervical ROM Extremities: full ROM of extremities Neurologic moves all extremities Psychiatric Orientation: alert and oriented x 3 Testing Laboratory Results 06/08/24 08:21
[2024-06-08] MEDS: fentANYL 2 MCG/ML BUPIVacaine 0.125%-NSS 100ML BAG ONE (09:15)
[2024-06-08] MEDS: BUPIVACAINE 0.25% PF 30 ML VIAL ONE (09:15)
[2024-06-08] MEDS: LIDOCAINE 2%/EPINEPHRINE 1:200,000 20 ML PF ONE (09:18)
[2024-06-08] MEDS: fentaNYL citrate PF 100 MCG/2 ML VIAL ONE (09:18)
[2024-06-08] MEDS: SODIUM CHLORIDE 0.9% PF INJ 10 ML VIAL ONE (09:19)
[2024-06-08] MEDS: ePHEDrine sulfate 50 MG/ML AMP ONE (09:28)
--- NOTE | 2024-06-08 09:31 | History & Physical Report ---
Date of Service June 08, 2024 Assessment & Plan (1) : Plan: Admit to L&D for labor. Epidural, comfortable now. Labs, EFM/toco. Anticipate . History of Present Illness Chief Complaint: labor Primary Care Provider: Flower Alcala, 23yo @ 39 0/7, came to L&D earlier this morning with regular contractions. and Delivery Plans Need for Rhogam d/t Rh negative mother *Rhogam given 04/02/24 - SP Hypothyroid *Check TFTs Q4wks Short interval Hepatitis B non-immune recommend vaccine Persistent umbilical vein - MFM consult -- fECHO scheduled through MFM - WNL -- Growth US q4 weeks at 28 weeks -- NST/ DVP weekly at 36 weeks - consider iol b/w 39-40 per mf - 06/11 Allergies Allergy/AdvReac Type Severity Reaction Status Date / Time paprika Allergy Hives, Verified 06/07/24 09:53 swelling Home Medications Medication Instructions Recorded Confirmed Type prenat.vits,ck,gli-gohj-mwhwr 1 tab PO DAILY 07/06/22 06/07/24 History loratadine 10 mg tablet 10 mg PO DAILY 11/06/23 06/07/24 History Patient History Medical History Varicella vaccination GERD (gastroesophageal reflux disease) Depression with anxiety Anemia Iron deficiency Vitamin D deficiency Allergic rhinitis Surgical History No history of previous surgery Family History Grandfather (Maternal) Myocardial infarction Coronary heart disease Hodgkin lymphoma Father Alcohol abuse Mother Anxiety Fibromyalgia IBS (irritable bowel syndrome) Brother No problems noted. Brother No problems noted. Grandmother (Maternal) Diabetes Denies family history of Ovarian cancer Prostate cancer Breast cancer Colorectal cancer Uterine cancer Social History Smoking Status: Never smoker Tobacco Type: E-cigarettes / Vaping Age Started Using Tobacco: 20; Second Hand Exposure: No; Do You Dip or Chew Tobacco: No; Tobacco Cessation Education Requested by Patient: No Hx Alcohol Use: No Hx Substance Use: No Preferred Language: [place] Communication Ability: Effective Visual Impairment: Limited Hearing Ability: Normal Dog Food Shredder Operator Required: No Beliefs That Will Affect Care: None marital status: single marital status details: boyfrienradha-Ignacio Ramirez (26) [phone] Current Living Situation: Parent and Significant Other Current Living Situation Comment: lives with child, parents, siblings, dog, c at-parents changing litter current occupational status: employed 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 How many Children do You have: 0 Other Information That Helps Us Care for You: No Feels Safe at Home: Yes Safety Concerns: Feels Safe At This Time Childhood Exposure to Second-Hand Smoke: Yes (occasional ) Diet: regular caffeine: Yes during the past year weight has: remained stable Dental Care, Regularly: Yes Physical Activity Frequency: Daily Physical Activity Frequency Comment: work- walk Seatbelt Use: always Sunscreen Use: Yes Do you think of yourself as: straight/heterosexual Sexual Activity: has been sexually active within the last 12 months Assistive Devices: None Review of Systems All systems reviewed & are unremarkable except as noted in HPI & below Physical Exam Physical Exam: FHT Cat 1 [place] Q 2 SVE 9/100/0, AROM mec-stained (light) Constitutional: WD/WN, vitals as above Respiratory: normal respiratory effort, lungs clear to auscultation no respiratory distress Cardiovascular: Rate/Rhythm: regular rate and regular rhythm Gastrointestinal (Abdomen): Inspection/Auscultation: abdomen normal to inspection Percussion/Palpation: abdomen soft; abdomen nontender Gravid. No s/s chorio or abruption. Skin: no rashes, warm and dry Psychiatric: A+Ox3, euthymic affect Results & Data Vital Signs (Past 12 Hours) Vital Signs Temp Pulse Resp BP Pulse Ox 06/08/24 09:25 84 127/66 06/08/24 09:24 88 99 06/08/24 09:23 103 H 126/58 L 06/08/24 09:21 88 117/56 L 06/08/24 09:19 98 06/08/24 09:19 88 06/08/24 09:19 74 119/58 L 06/08/24 09:17 75 126/51 L 06/08/24 09:15 74 139/60 06/08/24 09:14 75 98 06/08/24 09:11 99 H 157/68 H 06/08/24 09:09 74 98 06/08/24 09:04 76 100 06/08/24 08:59 100 H 100 06/08/24 08:54 120 H 100 06/08/24 08:53 71 92 06/08/24 08:49 92 H 100 06/08/24 08:44 85 100 06/08/24 08:39 78 99 06/08/24 08:34 109 H 98 06/08/24 08:18 36.7 C 16 141/89 H 06/08/24 08:15 75 141/89 H Coding Level of Care Code None Diagnoses Z34.90
--- NOTE | 2024-06-08 10:36 | Labor Progress Brief Note ---
Date of Service June 08, 2024 Subjective Comfortable with epidural. FHT 150s mod variability, no accels, variable decels with contractions Repositioned patient, O2 applied. Cervix 9cm, 100% effaced, 0 station. Attempted pushing to progress to delivery, while this did not allow for complete cervical dilation, it did allow recovery of heart tracing. Will stop pushing at this point, continue to monitor FHT, and allow labor to continue to progress on its own. Results & Data Vital Signs (Past 12 Hours) Vital Signs Temp Pulse Resp BP Pulse Ox 06/08/24 10:29 86 99 06/08/24 10:28 90 123/61 06/08/24 10:24 94 H 100 06/08/24 10:23 106 H 78 L 06/08/24 10:19 110 H 100 06/08/24 10:16 88 90 06/08/24 10:14 101 H 100 06/08/24 10:11 104 H 90 06/08/24 10:09 109 H 99 06/08/24 10:04 98 H 100 06/08/24 10:00 16 06/08/24 10:00 16 06/08/24 09:59 73 99 06/08/24 09:58 82 125/64 06/08/24 09:55 81 123/60 06/08/24 09:54 83 100 06/08/24 09:53 84 122/66 06/08/24 09:51 81 124/68 06/08/24 09:49 100 06/08/24 09:49 76 06/08/24 09:49 80 125/68 06/08/24 09:47 120/67 06/08/24 09:45 80 120/67 06/08/24 09:44 83 99 06/08/24 09:43 73 121/67 06/08/24 09:41 76 116/66 06/08/24 09:39 99 06/08/24 09:39 72 06/08/24 09:39 81 121/71 06/08/24 09:37 79 118/70 06/08/24 09:35 87 125/71 06/08/24 09:34 82 99 06/08/24 09:33 93 H 119/67 06/08/24 09:31 36.7 C 80 129/76 06/08/24 09:30 16 06/08/24 09:30 16 06/08/24 09:29 99 06/08/24 09:29 102 H 06/08/24 09:29 88 124/73 06/08/24 09:27 71 118/65 06/08/24 09:25 84 18 127/66 06/08/24 09:24 88 99 06/08/24 09:23 103 H 126/58 L 06/08/24 09:21 88 117/56 L 06/08/24 09:20 18 06/08/24 09:20 18 06/08/24 09:19 98 06/08/24 09:19 88 06/08/24 09:19 74 119/58 L 06/08/24 09:17 75 126/51 L 06/08/24 09:15 74 16 139/60 06/08/24 09:14 75 98 06/08/24 09:11 99 H 157/68 H 06/08/24 09:09 74 98 06/08/24 09:04 76 100 06/08/24 08:59 100 H 100 06/08/24 08:54 120 H 100 06/08/24 08:53 71 92 06/08/24 08:49 92 H 100 06/08/24 08:44 85 100 06/08/24 08:39 78 99 06/08/24 08:34 109 H 98 06/08/24 08:18 36.7 C 16 141/89 H 06/08/24 08:15 75 141/89 H Coding Level of Care Code None
--- NOTE | 2024-06-08 12:20 | History & Physical Bridge Note ---
Date of Service June 08, 2024 History & Physical Bridge Note I have examined the patient, reviewed the History & Physical and in the interval since the performance of the History & Physical I have noted the following changes of clinical significance: Patient has been pushing - station remains at 0 station, FHT are dropping to the 70s with each contraction with no movement of baby into the canal. Concern for size or potentially nuchal, therefore do not recommend delivery by vacuum. Recommend STAT for delivery, counseled patient verbally - waiting to consent formally would take too long and could cause morbidity - patient agreeable, will proceed to OR for intolerance to labor and failure to descend.
[2024-06-08] MEDS ORDERED: LIDOCAINE 2%/EPINEPHRINE 1:200,000 20 ML PF ONE (12:22)
[2024-06-08] MEDS: CITRIC ACID/SODIUM CITRATE 15 ML UDC ONE (12:23)
[2024-06-08] MEDS ORDERED: PHENYLEPHRINE HCL 10 MG/ML VIAL ONE (12:23)
--- NOTE | 2024-06-08 12:24 | Communication Note ---
Date of Service: June 08, 2024 stat cs for decels during stage 2 labor. epidural working.
[2024-06-08] MEDS ORDERED: MoRPHine SULFATE PF 1 MG/ML 10 ML AMP/VIAL ONE (12:29)
[2024-06-08] MEDS ORDERED: LACTATED RINGER'S 1,000 ML IV SCH ×2 (12:30→13:45)
[2024-06-08] MEDS ORDERED: DEXAMETHASONE SOD INJ 4 MG/ML VIAL ONE (12:33)
[2024-06-08] MEDS ORDERED: ONDANSETRON INJ 2 MG/ML 2 ML VIAL ONE (12:33)
[2024-06-08] MEDS ORDERED: METOCLOPRAMIDE HCL 20 MG in SODIUM CHLORIDE 0.9% 50 ML IV PRN (12:40)
[2024-06-08] MEDS ORDERED: NALOXONE HCL 0.08 MG in SYRINGE 1.8 ML IV PRN (12:40)
[2024-06-08] MEDS ORDERED: HYDROmorphone INJ 0.5 MG/0.5 ML SYR IV PRN ×2 (12:40→13:42)
[2024-06-08] MEDS ORDERED: MEPERIDINE HCL 25 MG/ML CARP/VIAL IV PRN (12:40)
[2024-06-08] MEDS ORDERED: MoRPHine SULFATE PF 1 MG/ML 10 ML AMP/VIAL EPI ONE (12:40)
[2024-06-08] MEDS ORDERED: oxyCODONE HCL IR 5 MG TAB (IMMEDIATE RELEASE) PO PRN ×2 (12:40→13:42)
[2024-06-08] MEDS ORDERED: PROMETHAZINE 6.25 MG/50.25 ML BAG IV PRN (12:40)
[2024-06-08] MEDS ORDERED: ONDANSETRON INJ 2 MG/ML 2 ML VIAL IV PRN ×2 (12:40→13:42)
[2024-06-08] MEDS ORDERED: DROPERIDOL 5 MG/2 ML VIAL IV PRN (12:40)
[2024-06-08] MEDS ORDERED: DC INTRASPINAL MORPHINE SCH (12:45)
[2024-06-08] MEDS ORDERED: NO NARCOTICS OR SEDATIVES SCH (12:45)
[2024-06-08] MEDS ORDERED: SODIUM CHLORIDE 0.9% PF INJ 10 ML VIAL ONE (12:46)
[2024-06-08] MEDS ORDERED: ceFAZolin 330 MG/ML 1 GM VIAL ONE (12:46)
[2024-06-08 13:04] LABS: Base Excess Cord Venous Blood -4.7 mEq/L (-7.7-1.9); Cord Venous Blood HCO3 23 mmol/L (18.4-26.8); Cord Venous Blood PCO2 49 mmHg (30.4-57.2); Cord Venous Blood PO2 < 20 mmHg (14.1-43.3); Cord Venous Blood pH 7.27 (7.20-7.44); O2 Saturation Cord Venous Bld < 60.0 % (<68)
[2024-06-08 13:07] LABS: Base Excess Cord Arterial Bld -5.5 mEq/L (-9-1.8); CO2 Cord Arterial Blood 54 mmHg (39.1-73.5); HCO3 Cord Arterial Blood 23 mmol/L (19.7-28.5); Oxygen Sat Cord Arterial Blood < 60.0 % (<60); PO2 Cord Arterial Blood < 20 mmHg (4.1-31.7); pH Cord Arterial Blood 7.23 (7.1-7.38)
--- NOTE | 2024-06-08 13:26 | Anesthesia Procedure Note ---
Date of Service June 08, 2024 Anesthesia Post Epidural Note Vital Signs Vital Signs: Temp Pulse Resp BP Pulse Ox 36.6 C 117 H 20 111/67 100 06/08/24 11:30 06/08/24 12:19 06/08/24 12:00 06/08/24 11:57 06/08/24 12:19 Notes Mental Status: alert / awake / arousable and participated in evaluation Nausea / Vomiting: adequately controlled Pain: adequately controlled Airway Patency, RR, SpO2: stable & adequate BP & HR: stable & adequate Hydration State: stable & adequate Neuraxial Anesthesia: was administered and sensory block is resolving Anesthetic Complications: no major complications apparent Epidural: Removed without complications and With tip intact
--- NOTE | 2024-06-08 13:33 | Anesthesiology Progress Note ---
Date of Service June 08, 2024 Anesthesia Post Procedure Vital Signs Vital Signs: Temp Pulse Resp BP Pulse Ox 06/08/24 13:30 90 97 06/08/24 13:28 91 H 97/57 L 06/08/24 13:25 93 H 99 06/08/24 12:19 117 H 100 06/08/24 12:14 131 H 100 06/08/24 12:11 133 H 80 L 06/08/24 12:09 111 H 80 L 06/08/24 12:04 130 H 100 06/08/24 12:00 20 06/08/24 12:00 20 06/08/24 11:59 100 06/08/24 11:59 127 H 06/08/24 11:59 110 H 84 L 06/08/24 11:57 164 H 111/67 06/08/24 11:54 91 H 76 L 06/08/24 11:49 133 H 100 06/08/24 11:47 106 H 88 L 06/08/24 11:44 79 100 06/08/24 11:43 80 123/55 L 06/08/24 11:39 86 100 06/08/24 11:34 92 H 100 06/08/24 11:30 20 06/08/24 11:30 36.6 C 20 06/08/24 11:29 98 H 125/56 L 100 06/08/24 11:24 86 100 06/08/24 11:19 101 H 100 06/08/24 11:14 100 06/08/24 11:14 95 H 06/08/24 11:14 92 H 112/75 06/08/24 11:09 91 H 100 06/08/24 11:04 96 H 100 06/08/24 11:00 16 06/08/24 11:00 16 06/08/24 10:59 89 100 06/08/24 10:54 88 100 06/08/24 10:49 115 H 100 06/08/24 10:44 94 H 97 06/08/24 10:43 99 H 125/66 06/08/24 10:39 102 H 99 06/08/24 10:34 103 H 99 06/08/24 10:30 20 06/08/24 10:30 20 06/08/24 10:29 86 99 06/08/24 10:28 90 123/61 06/08/24 10:24 94 H 100 06/08/24 10:23 106 H 78 L 06/08/24 10:19 110 H 100 06/08/24 10:16 88 90 06/08/24 10:14 101 H 100 06/08/24 10:11 104 H 90 06/08/24 10:09 109 H 99 06/08/24 10:04 98 H 100 06/08/24 10:00 16 06/08/24 10:00 16 06/08/24 09:59 73 99 06/08/24 09:58 82 125/64 06/08/24 09:55 81 123/60 06/08/24 09:54 83 100 06/08/24 09:53 84 122/66 06/08/24 09:51 81 124/68 06/08/24 09:49 100 06/08/24 09:49 76 06/08/24 09:49 80 125/68 06/08/24 09:47 120/67 06/08/24 09:45 80 120/67 06/08/24 09:44 83 99 06/08/24 09:43 73 121/67 06/08/24 09:41 76 116/66 06/08/24 09:39 99 06/08/24 09:39 72 06/08/24 09:39 81 121/71 06/08/24 09:37 79 118/70 06/08/24 09:35 87 125/71 06/08/24 09:34 82 99 06/08/24 09:33 93 H 119/67 06/08/24 09:31 36.7 C 80 129/76 06/08/24 09:30 16 06/08/24 09:30 16 06/08/24 09:29 99 06/08/24 09:29 102 H 06/08/24 09:29 88 124/73 06/08/24 09:27 71 118/65 06/08/24 09:25 84 18 127/66 06/08/24 09:24 88 99 06/08/24 09:23 103 H 126/58 L 06/08/24 09:21 88 117/56 L 06/08/24 09:20 18 06/08/24 09:20 18 06/08/24 09:19 98 06/08/24 09:19 88 06/08/24 09:19 74 119/58 L 06/08/24 09:17 75 126/51 L 06/08/24 09:15 74 16 139/60 06/08/24 09:14 75 98 06/08/24 09:11 99 H 157/68 H 06/08/24 09:09 74 98 06/08/24 09:04 76 100 06/08/24 08:59 100 H 100 06/08/24 08:54 120 H 100 06/08/24 08:53 71 92 06/08/24 08:49 92 H 100 06/08/24 08:44 85 100 06/08/24 08:39 78 99 06/08/24 08:34 109 H 98 06/08/24 08:18 36.7 C 16 141/89 H 06/08/24 08:15 75 141/89 H Transfer of Care Handoff Completed per policy Notes Mental Status: alert / awake / arousable Patient Amnestic to Procedure: Yes Nausea / Vomiting: adequately controlled Pain: adequately controlled Airway Patency, RR, SpO2: stable & adequate BP & HR: stable & adequate Hydration State: stable & adequate Neuraxial Anesthesia: was administered and sensory block is resolving Anesthetic Complications: no major complications apparent and Pt Satisfied with anesthetic care
[2024-06-08] MEDS ORDERED: MAGNESIUM HYDROXIDE SUSP 30 ML UDC PO PRN (13:42)
[2024-06-08] MEDS ORDERED: CALCIUM CARBONATE 500 MG CHEWABLE TAB PO PRN (13:42)
[2024-06-08] MEDS ORDERED: diphenhydrAMINE Capsule 25 MG CAP PO PRN (13:42)
[2024-06-08] MEDS ORDERED: DIPHTHER/TETAN/PERTUS Vaccine (Tdap, Adol/Adult) 0.5mL IM ONE (13:42)
[2024-06-08] MEDS ORDERED: SENNA 8.6 MG TAB PO PRN (13:42)
[2024-06-08] MEDS ORDERED: BENZOCAINE 20% SPRY 85 APPLN/85 GM CAN EXT PRN (13:42)
[2024-06-08] MEDS ORDERED: HYDROCORTISONE ACETATE 25 MG SUPP PR PRN (13:42)
[2024-06-08] MEDS ORDERED: PROMETHAZINE 12.5 MG/50.5 ML BAG IV PRN (13:42)
[2024-06-08] MEDS ORDERED: SODIUM CHLORIDE 0.9% 1,000 ML IV SCH (13:45)
--- NOTE | 2024-06-08 13:45 | Operative Report ---
Post Operative Report Pre & Post Diagnosis Operation Date: 06/08/24 12:20 Pre-Op Diagnosis: 1. Failure to descend, nonreassuring heart tracing Post-Op Diagnosis: Same as above I identified the patient and participated in the time-out.: Yes Procedure Operation Date: 06/08/24 12:20 Actual Procedures p Primary Low Transverse Section in LD [facility] @ 1237 in LD OR - Gilma Cee DO Surgeon Gilma Cee, [employer] Worker Tracey Nicolas RN Quantitative Blood Loss (QBL) 350 Findings Consistent with Post-Op Diagnosis Viable male , Apgars 8/9, Weight 8#10oz. Specimens placenta, cord blood, cord gas Drains dickey clear yellow Anesthesia Type Labor Epidural Complications none Disposition Accompanied Patient To Recovery: No Disposition: L&D Indications 23yo @ 39 0/7, presented to L&D in labor, progressed to complete dilation, however head did not descend with pushing - additionally, heart tones became nonreassuring, dropping into the 70s. Occiput posterior head positioning. Description of Procedure The patient was seen in her labor and delivery room, risks benefits and alternatives to surgery were quickly reviewed, given emergent nature of . Informed consent obtained verbally. Questions were answered. She was taken to the operating room, spinal anesthesia was administered. She was then prepared and draped in the usual sterile fashion in the supine position with a leftward tilt. Timeout was confirmed. A Pfannenstiel skin incision was made with a scalpel, and carried through to the underlying layer of fascia. Fascia was nicked at midline, and this incision was extended bilaterally. The superior aspect of the fascial incision was grasped with Nadege clamps x2, elevated off the underlying rectus abdominis muscles, and dissected sharply and bluntly. In similar fashion, the inferior aspect of the fascial incision was dissected. The rectus abdominis muscles were , and the peritoneum was entered bluntly digitally. This was extended bilaterally. The bladder flap was taken down carefully using Metzenbaum scissors. Using a new scalpel, a low transverse uterine incision was created. Meconium stained amniotic fluid noted. The was delivered from a cephalic presentation. The head delivered, followed by shoulders and body. Spontaneous cry on the field. The cord was doubly clamped and cut, and the was handed off to the waiting quality control clerk. A segment was retained for cord gases. Cord blood was obtained. The placenta was delivered spontaneously intact. The uterus was exteriorized, and cleared of all clots and debris. The hysterotomy incision was reapproximated using 0 Vicryl in a running locked stitch. A second layer of the same suture was used to imbricate the incision. Posterior uterus was evaluated and normal. The uterus was returned to the abdomen, and gutters were cleared of clots and debris. Excellent hemostasis was observed. The fascial incision was reapproximated using 0 Vicryl in a running stitch. The subcutaneous tissue was irrigated, and reapproximated using 2-0 plain gut in a running stitch. The skin was reapproximated using 4-0 Vicryl in a running subcuticular stitch. Steri-Strips and a bandage were applied. The patient tolerated the procedure well, and will be taken to the recovery area in stable and good condition. I attest to the content of the Intraoperative Record and any orders documented therein. Any exceptions are noted below. OB Procedure Charges 00488
[2024-06-08] MEDS: KETOROLAC 30 MG/ML VIAL ONE (13:53)
[2024-06-08] MEDS: OXYTOCIN 20 UNITS/1002ML LR IV ONE (15:48)
[2024-06-08] MEDS: OXYTOCIN 20 UNITS/LR 1,002 ML IV SCH (15:49)
[2024-06-08] MEDS: DOCUSATE SODIUM 100 MG CAP PO SCH (20:22)
[2024-06-08] MEDS: ACETAMINOPHEN 325 MG TAB PO SCH (20:22)
[2024-06-08] MEDS: SIMETHICONE 80 MG CHEW PO SCH (20:22)
[2024-06-08] MEDS: KETOROLAC 30 MG/ML VIAL IV SCH (20:23)
[2024-06-08] MEDS: diphenhydrAMINE 50 MG/ML VIAL IV PRN (23:32)
[2024-06-09] MEDS ORDERED: AZITHROMYCIN 500 MG/255 ML BAG IV SCH (06:00)
[2024-06-09] MEDS ORDERED: ceFAZolin 2000MG 2,000 MG/15 ML SYR IV SCH (06:00)
[2024-06-09] MEDS ORDERED: CITRIC ACID/SODIUM CITRATE 15 ML UDC PO SCH (06:00)
[2024-06-09 06:14] LABS: Basophils # (auto) 0.03 K/uL (0.00-0.20); Basophils % (auto) 0.2 %; Eosinophils # (auto) 0.01 K/uL (0.00-0.50); Eosinophils % (auto) 0.1 %; Hematocrit (blood only) 25.2 % (37.0-47.0); Hemoglobin 7.9 g/dl (12.0-16.0); Immature Granulocytes % (auto) 0.7 %; Lymphocytes # (auto) 1.33 K/uL (1.20-3.40); Lymphocytes % (auto) 8.8 %; Mean Corpuscular Hemoglobin 23.2 pg (25.0-34.0); Mean Corpuscular Hgb Conc 31.3 g/dL (32.0-36.0); Mean Corpuscular Volume 74.1 fL (80.0-100.0); Mean Platelet Volume 11.7 fL (9.4-12.4); Monocytes # (auto) 1.35 K/uL (0.11-0.59); Monocytes % (auto) 8.9 %; Neutrophils # (auto) 12.28 K/uL (1.40-6.50); Neutrophils % (auto) 81.3 %; Platelet Count 153 K/uL (130-400); RDW Coefficient of Variation 15.9 % (11.5-14.5); RDW Standard Deviation 42.9 fL (36.4-46.3)
[2024-06-09 06:42] LABS: RBC Morphology Unremarkable
[2024-06-09] MEDS: PRENATAL VITAMIN 1 TAB PO SCH (08:05)
[2024-06-09] MEDS: FERROUS SULFATE 325 MG TAB PO SCH (08:05)
--- NOTE | 2024-06-09 08:50 | Obstetrical Progress Note ---
Date of Service June 09, 2024 Assessment & Plan (1) S/P section: POD#1 doing well. Ambulating, eating/drinking. Lochia minimal. Pain controlled with pain meds. Continue postop care, anticipate likely DC home tomorrow. Subjective Ambulation: ambulating normally Voiding: no voiding problems Diet Tolerance:: regular diet Lochia:: Moderate Review of Systems All systems reviewed & are unremarkable except as noted in HPI & below Physical Exam Constitutional WD/WN, vitals as above no acute distress Respiratory normal respiratory effort Cardiovascular Rate/Rhythm: regular rate and regular rhythm Gastrointestinal (Abdomen) Inspection/Auscultation: abdomen normal to inspection; abdomen not distended Percussion/Palpation: abdomen soft Genitourinary OB Exam Abdomen: + fundal height Fundus: + firm; not tender Results & Data Vital Signs (Past 12 Hours) Vital Signs Temp Pulse Resp BP Pulse Ox O2 Del Method 06/09/24 07:09 36.9 C 74 16 122/72 96 Room Air 06/09/24 06:37 16 97 06/09/24 05:50 16 99 06/09/24 04:34 18 93 06/09/24 03:40 37.2 C 80 16 115/71 100 Room Air 06/09/24 03:15 16 94 06/09/24 01:05 16 94 06/09/24 00:15 17 95 06/08/24 23:49 18 98 06/08/24 23:25 36.9 C 78 18 125/62 95 Room Air 06/08/24 22:30 18 99 06/08/24 21:15 16 98 06/08/24 20:20 16 97 06/08/24 20:20 37.3 C 99 H 18 133/74 97 Room Air
[2024-06-09] MEDS: LORATADINE 10 MG TAB PO SCH (09:27)
[2024-06-09] MEDS ORDERED: KETOROLAC 30 MG/ML VIAL IV PRN (13:33)
[2024-06-09] MEDS: IBUPROFEN 600 MG TAB PO SCH (13:46)
[2024-06-09] MEDS: bisacodyL 5 MG TABEC PO SCH (20:25)
[2024-06-09 20:38] VITALS: TEMP 98.1
--- NOTE | 2024-06-10 04:42 | Obstetrical Progress Note ---
Date of Service June 10, 2024 Assessment & Plan (1) S/P section: POD#2 doing well. Ambulating, eating/drinking well. +bowel movement. Pain controlled - not currently using oxycodone, however would like Rx for home. Rx Percocet #10 tabs sent to [facility] in [place] per her request. Reviewed postop instructions, followup 6w in office. Subjective Ambulation: ambulating normally Voiding: no voiding problems Diet Tolerance:: regular diet Lochia:: Moderate Review of Systems All systems reviewed & are unremarkable except as noted in HPI & below Physical Exam Incision CDI. Fundus firm. Constitutional WD/WN, vitals as above no acute distress Respiratory normal respiratory effort Cardiovascular Rate/Rhythm: regular rate and regular rhythm Gastrointestinal (Abdomen) Inspection/Auscultation: abdomen normal to inspection; abdomen not distended Percussion/Palpation: abdomen soft Genitourinary OB Exam Abdomen: + fundal height Fundus: + firm; not tender Results & Data Vital Signs (Past 12 Hours) Vital Signs Temp Pulse Resp BP Pulse Ox O2 Del Method 06/09/24 23:04 36.7 C 65 16 123/75 96 Room Air 06/09/24 20:15 Room Air 06/09/24 20:15 36.7 C 92 H 18 127/81 99 Room Air
[2024-06-10 06:32] LABS: Hematocrit (blood only) 24.9 % (37.0-47.0); Hemoglobin 7.6 g/dl (12.0-16.0)
[2024-06-10 08:24] VITALS: BP 123/79; PULSE 75; RESP 18; O2SAT 98
[2024-06-10] MEDS ORDERED: bisacodyL 10 MG SUPP PR PRN (13:33)
[2024-06-10] MEDS ORDERED: IBUPROFEN 600 MG TAB PO PRN (13:33)
[2024-06-10] MEDS ORDERED: ACETAMINOPHEN 325 MG TAB PO PRN (19:33)
== END 2024-06-10 11:05 | disposition home or self-care (01) | DRG 788 ==
LOC: OPB 08:03 → 4S1 08:06 → 4E2 17:16